=== PATIENT | male | born 1950 | race Hispanic/Latino ===

== ENCOUNTER 2017-03-26 16:31 | Emergency (ER) | payer OTHER ==
[~2017-03-26] VITALS: Ht 167.6 cm; Wt 79.4 kg
== END 2017-03-26 22:00 | disposition home or self-care (01) ==
LOC: FSED 16:31
DX: R41.0 Disorientation, unspecified (principal); E78.5 Hyperlipidemia, unspecified; K70.30 Alcoholic cirrhosis of liver without ascites; K72.00 Acute and subacute hepatic failure without coma; I10 Essential (primary) hypertension
CPT/HCPCS: 70450; 80048; 82140; 85025; 85610; 99284